=== PATIENT | female | born 1970 | race Caucasian/White ===

== ENCOUNTER 2023-11-24 07:15 | Outpatient (CLI) | payer BC, MEDICAID, SELFPAY ==
[2023-11-24 07:52] LABS: Basophils % 0.9 %; Eosinophils # 0.1 10^3/uL (0.0-0.8); Eosinophils % 2.2 %; Hematocrit 44.4 % (36-47); Lymphocytes # 1.4 10^3/uL (0.8-4.8); Lymphocytes % 31.9 %; Mean Corpuscular HGB Conc 32.7 g/dL (30-55); Mean Corpuscular Hemoglobin 31.5 pg (27-33); Mean Corpuscular Volume 96.5 fl (85-98); Mean Platelet Volume 9.4 fL (7.4-10.4); Monocytes # 0.3 10^3/uL (0.2-0.9); Neutrophils # 2.56 10^3/uL (1.8-7.7); Neutrophils % 57.6 %; Nucleated Red Blood Cells % 0 %; Platelet Count 225 10^3/cmm (157-399); White Blood Count 4.45 10^3/uL (3.29-11.43)
[2023-11-24 08:12] LABS: Free T4 Free Thyroxine 0.96 ng/dL (0.82-1.77); T3 Free 2.5 PG/ML (2.0-4.4)
[2023-11-24 08:15] LABS: 25 Hydroxy Vitamin D 50 ng/mL (30-100); Alanine Aminotransferase 21 U/L (0-33); Albumin Level 4.6 g/dL (3.5-5.2); Alkaline Phosphatase 68 U/L (35-105); Anion Gap 13.4 (5-19); Aspartate Amino Transferase 21 U/L (0-32); Blood Urea Nitrogen 19 mg/dL (6-20); Calcium 9.7 mg/dL (8.5-10.5); Carbon Dioxide 30 mmol/L (22-29); Chloride 104 mmol/L (98-107); Glomerular Filtration Rate 129.1 mL/min (90-130); Glucose 97 mg/dL (65-115); Homocysteine 7.48 umol/l (0-15); Osmolality Calculated 298 mOsm/kg (285-295); Potassium 4.4 mmol/L (3.5-5.1); Sodium 143 mmol/L (136-145); Thyroid Stimulating Hormone 7.23 uIU/mL (0.27-4.20); Total Bilirubin 0.3 mg/dL (0.15-1.2); Total Protein 7.6 g/dL (6.6-8.7); Vitamin B12 1461 pg/mL (232-1245)
[2023-11-24 08:33] LABS: Folate Level > 20.0 ng/mL (4.8-37.3)
[2023-11-28 03:54] LABS: Methylmalonic Acid 105 nmol/L (55-335)
== END 2023-11-24 07:16 | disposition home or self-care (01) ==
PROVIDERS: PCP Nurse Practitioner; Visit Provider Psychiatry & Neurology Neurology
DX: G43.909 Migraine, unspecified, not intractable, without status migrainosus (principal); R79.89 Other specified abnormal findings of blood chemistry
CPT/HCPCS: 36415; 80053; 82306; 82607; 82746; 83090; 83735; 83921; 84439; 84443; 84481; 85025

== ENCOUNTER 2023-12-28 12:58 | Outpatient (CLI) | payer OTHER, BC, MEDICAID, SELFPAY ==
--- NOTE | 2023-12-28 13:00 | MR_ITS ---
WS: [id number] MRI BRAIN WITH AND WITHOUT CONTRAST HISTORY: G43.909 - Migraine, unspecified, not intractable, without... COMPARISON: None available. TECHNIQUE: Multiplanar imaging performed through the brain with MultiHance 20 ml's IV. No acute infarcts are seen. Morales-white matter differentiation is well preserved. No susceptibility artifacts or prior lacunar infarcts. Ventricles and extra-axial spaces are normal. Clivus and pituitary gland are normal. Visualized posterior fossa and brainstem are also normal. Postcontrast images are negative for masses or vascular malformations. Very small caliber distal LEFT vertebral artery. Dural venous sinuses are normal. Paranasal sinuses: Well aerated with no significant disease. Mastoid air cells: Normal. Calvarium and scalp: Normal. MR/MR head wo/w con [id number] IMPRESSION: 1. Acute no acute diffusion abnormality or ischemia. 2. No significant volume loss or small vessel disease. 3. Normal ventricles. 4. No mass.
[2023-12-28] MEDS: gadobenate dimeglumine 20 mL vial IV (13:34)
== END 2023-12-28 12:59 | disposition home or self-care (01) ==
LOC: RAD 13:03
PROVIDERS: PCP Nurse Practitioner; Visit Provider Psychiatry & Neurology Neurology
DX: G43.909 Migraine, unspecified, not intractable, without status migrainosus (principal)
CPT/HCPCS: 70553

== ENCOUNTER 2024-04-08 15:12 | Emergency (ER) | payer BC, MEDICAID, SELFPAY ==
--- NOTE | 2024-04-08 15:14 | ECG_ITS ---
[facility] Test Date: 2024-04-08 Pat Name: Cinda Cooper Department: Room: Gender: Female [employer]ist: : 1970 Requested By: Isaías Cronin Order Number: [id number] Reading MD: RANDY PAREDES Measurements Intervals [place] Rate: 73 P: 80 VA: 157 QRS: 66 QRSD: 92 T: 80 QT: 381 QTc: 420 Interpretive Statements SINUS RHYTHM No previous ECG available for comparison Electronically Signed On 04-10-2024 23:15:18 POWDER LOADER by RANDY PAREDES [email or web address]
[2024-04-08 15:19] VITALS: BP 115/77; PULSE 82; RESP 16; TEMP 36.7; O2SAT 97; BMI 33.0
--- NOTE | 2024-04-08 15:29 | XRR_ITS ---
PROCEDURE INFORMATION: Exam: XR Right Shoulder Exam date and time: 04/08/2024 4:30 PM Age: 53 years old Clinical indication: Right; Patient HX: RT shoulder pain that extends to RT chest; No known injury TECHNIQUE: Imaging protocol: Radiologic exam of the right shoulder. Views: 2 or more views. COMPARISON: No relevant prior studies available. FINDINGS: Bones/joints: Mild degenerative disease of the right acromioclavicular joint. Soft tissues: Normal. XR/XR shoulder RT min 2V* [id number] IMPRESSION: No acute fracture or dislocation.
--- NOTE | 2024-04-08 16:46 | CTR_ITS ---
PROCEDURE INFORMATION: Exam: CT Chest Without Contrast; Diagnostic Exam date and time: 04/08/2024 5:16 PM Age: 53 years old Clinical indication: Pain; Shortness of breath; Right-sided; Additional info: RT chest pain, SOB TECHNIQUE: Imaging protocol: Diagnostic computed tomography of the chest without contrast. Radiation optimization: All CT scans at this facility use at least one of these dose optimization techniques: automated exposure control; mA and/or kV adjustment per patient size (includes targeted exams where dose is matched to clinical indication); or iterative reconstruction. COMPARISON: CR (CHEST, ) 04/08/2024 4:30 PM RADIATION DOSE METRICS: Total DLP (mGy-cm): 264 FINDINGS: Lungs: Unremarkable. No consolidation. No masses. Pleural spaces: Unremarkable. No pneumothorax. No pleural effusion. Heart: Unremarkable. No cardiomegaly. No pericardial effusion. Coronary arteries: No coronary calcifications. Lymph nodes: Unremarkable. No enlarged lymph nodes. Vasculature: Unremarkable. No aortic aneurysm. Gallbladder and biliary ducts: There has been a cholecystectomy. Stomach: Post sleeve gastrectomy. Bones/joints: The thoracic spine demonstrates mild degenerative changes at multiple levels. Soft tissues: Unremarkable. CT/CT chest wo con [id number] IMPRESSION: No acute cardiopulmonary process.
[2024-04-08] MEDS: dexamethasone 10 mg/mL INJ IM (17:00)
[2024-04-08 17:03] VITALS: BP 121/86; PULSE 78; RESP 16; O2SAT 98
--- NOTE | 2024-04-08 18:14 | W.ED.EXTPRO ---
HPI - Extremity Problem General: Chief complaint: Extremity Injury, Upper Stated complaint: pain in right side of chest and back Time Seen by Provider: 04/08/24 16:29 History of Present Illness: Cinda Cooper is a 53-year-old female that presents to the emergency department with complaints of right scapular pain that radiates into anterior chest. Onset of symptoms 4 months ago and has been intermittent. Patient denies burning sensation shortness of breath, fever, chills. She denies left-sided chest pain. Related Data Home Medications Medication Instructions Recorded Confirmed levothyroxine 25 mcg tablet 25 mcg PO DAILY 04/08/24 04/08/24 Previous Rx's Medication Instructions Recorded galcanezumab-gnlm 120 mg/mL 120 mg SUBCUT ONCE #1 mL 11/17/23 subcutaneous pen injector (Emgality Pen) gabapentin 100 mg capsule 100 mg PO TID 30 days #90 caps 02/08/24 methylprednisolone 4 mg tablets in See Rx Instructions PO .COMPLEX 04/08/24 a dose pack (Medrol (Rex)) #21 ea Allergies Allergy/AdvReac Type Severity Reaction Status Date / Time erythromycin base Allergy ADR-Vomitin Verified 02/08/24 14:13 g Review of Systems General: Reports: 10 or more systems reviewed and unremarkable except in HPI and below PFSH ED PFSH: Social History Smoking and tobacco/nicotine status: unknown if used tobacco/nicotine Physical Exam Const: COMMON NORMALS: no acute distress and patient oriented x3 GENERAL APPEARANCE: cooperative and comfortable HENMT: COMMON NORMALS: normocephalic HEAD & SCALP: normocephalic MOUTH: Normal oral and palatal mucosa present Eye: GENERAL EYE: appearance normal, both eyes and all related structures Neck/C-Spine: COMMON NORMALS: no lymphadenopathy Lymph: LYMPHATIC: no lymphadenopathy noted Chest: COMMONS NORMALS: normal inspection of the chest Resp: COMMON NORMALS: normal respiratory effort, No retractions, No use of accessory muscles and clear to auscultation bilaterally EFFORT & INSPECTION: Yes able to speak in complete sentences and Yes symmetric chest movement AUSCULTATION: clear to auscultation bilaterally Cardio: COMMON NORMALS: regular rate and regular rhythm PALPATION: normal PMI RATE: regular rate RHYTHM: regular rhythm GI: COMMON NORMALS: Normal to inspection, nondistended, normoactive bowel sounds present : COMMON NORMALS: Yes no CVA tenderness BLADDER/KIDNEY EXAM: Yes no CVA tenderness Back/Pelvis: COMMON NORMALS: no CVA tenderness Extremity: COMMON NORMALS: normal to inspection Neuro: COMMON NORMALS: patient oriented x3 Skin: COMMON NORMALS: no rashes or lesions noted GENERAL SKIN EXAM: no rashes or lesions noted Course Vital Signs: Vital signs: Vital Signs Temperature 98.1 F 04/08/24 15:19 Pulse Rate 78 04/08/24 17:03 Respiratory Rate 16 04/08/24 17:03 Blood Pressure 121/86 04/08/24 17:03 Pulse Oximetry 98 04/08/24 17:03 Oxygen Delivery Me thod Room Air 04/08/24 17:03 MDM - Extremity (Nontraumatic) Medical Decision Making Patient is a 53-year-old female that presents to the emergency department with complaints of right scapular pain that radiates into the right chest. It is reproducible with movement. There is no tachycardia. Denies chest pain or shortness of breath. His fevers. Has not had a cough Onset of symptoms 4 months ago. While here in the emergency department she underwent diagnostic evaluation that included a right shoulder x-ray and a CT chest. XR right shoulder revealed no acute findings. The CT chest reveals no acute cardiopulmonary abnormality. The thoracic spine did have multiple levels of degenerative changes that may be causing a musculoskeletal pain radiating from the scapula to the chest. Patient was given Decadron while here in the emergency department and does report some improvement in her symptoms. We are going to discharge her home with follow-up. She needs to follow-up with primary care. If she worsens or develops new symptoms, she should be reevaluated at PCP or here in the emergency department. Patient is agreeable and all questions answered Lab Data Radiology Impressions Shoulder X-Ray 04/08/24 15:29 IMPRESSION: No acute fracture or dislocation. Chest CT 04/08/24 16:46 IMPRESSION: No acute cardiopulmonary process. All radiology interpretation(s) finalized by discharge Discharge Plan Discharge Patient Disposition: Home Clinical Impression: Chronic scapular pain Condition: Stable Prescriptions: New methylprednisolone [Medrol (Rex)] 4 mg tablets,dose pack See Rx Instructions .ROUTE .COMPLEX Qty: 21 0RF Rx Instructions: for 6 days No Action Emgality Pen 120 mg/mL pen injector 120 mg SUBCUT ONCE Qty: 1 5RF gabapentin 100 mg capsule 100 mg PO TID 30 Days Qty: 90 0RF levothyroxine 25 mcg tablet 25 mcg PO DAILY Discharge Orders: Discharge ED (Routine); Ordered 04/08/24 Ordered By: Janel Hassan Referrals: Bishop Moran, [facility] [Primary Care Provider] - Discharge Diet: Advance as tolerated Discharge Activity: Resume usual activity Patient Instructions: Pain Management, Lower Back Exercises (ED) Activity Restrictions/Additional Instructions: Please follow-up with your primary care doctor if your pain does not improve. Please return to the emergency department for new worsening or concerning symptoms Coding Level of Care Code ED Postal Supervisor for Vaishnavi Merrill
[2024-04-08] MEDS: HYDROcodone-acetaminophen 5-325 mg Tablet 1 TAB PO (18:36)
[2024-04-08 18:37] VITALS: BP 122/83; PULSE 77; O2SAT 97
== END 2024-04-08 18:39 | disposition home or self-care (01) ==
PROVIDERS: Emergency Provider Nurse Practitioner; PCP Nurse Practitioner
DX: M25.511 Pain in right shoulder (principal)
CPT/HCPCS: 71250; 73030; 93005; 96372; 99284; J1100

== ENCOUNTER 2024-09-12 15:50 | Outpatient (CLI) | payer BC, MEDICAID, SELFPAY ==
[2024-09-12 17:22] LABS: Thyroid Stimulating Hormone 3.18 uIU/mL (0.27-4.20)
== END 2024-09-12 15:51 | disposition home or self-care (01) ==
PROVIDERS: PCP Nurse Practitioner; Visit Provider Dental Assistant
DX: E03.8 Other specified hypothyroidism (principal); E06.3 Autoimmune thyroiditis
CPT/HCPCS: 84443